=== PATIENT | female | born 1970 | race Two or more races ===

== ENCOUNTER 2019-11-06 06:00 | Day surgery (SDC) | payer OTHER ==
[~2019-11-06 06:00] MED LIST: BUSPIRONE HCL15 MG PO; WELLBUTRIN XL150 M1 PO; XANAX XR1 MG PO
== END 2019-11-06 17:15 | disposition home or self-care (01) ==
LOC: CIR.AMB 06:00
PROVIDERS: ATTEND Surgery
DX: C50.412 Malignant neoplasm of upper-outer quadrant of left female breast (principal); D24.1 Benign neoplasm of right breast; Z20.828 Contact with and (suspected) exposure to other viral communicable diseases; Z90.13 Acquired absence of bilateral breasts and nipples

== ENCOUNTER 2019-11-24 11:14 | Outpatient (CLI) | payer OTHER | END 2019-11-24 11:26 | disposition home or self-care (01) | LOC: SONOGRAMA 11:14 | PROVIDERS: ATTEND Plastic Surgery | DX: N64.89 Other specified disorders of breast (principal) ==

== ENCOUNTER 2020-02-03 08:53 | Outpatient (CLI) | payer OTHER ==
[2020-02-03] MEDS ORDERED: TAMOXIFEN CITRA20 MG PO (12:16)
[2020-02-05] MEDS ORDERED: VITAMIN D PO (11:33)
[2020-02-05] MEDS ORDERED: MULTIVITAMINS1 EAC9 PO (11:33)
== END 2020-02-03 09:00 | disposition home or self-care (01) ==
LOC: LAB 08:53
PROVIDERS: ATTEND Plastic Surgery
DX: C50.912 Malignant neoplasm of unspecified site of left female breast (principal)

== ENCOUNTER 2020-02-12 06:00 | Day surgery (SDC) | payer OTHER ==
[~2020-02-12 06:00] MED LIST changes: +MULTIVITAMINS1 EAC9 PO; +TAMOXIFEN CITRA20 MG PO; +VITAMIN D PO
== END 2020-02-12 14:25 | disposition home or self-care (01) ==
LOC: CIR.AMB 06:00
PROVIDERS: ATTEND Plastic Surgery
DX: C50.812 Malignant neoplasm of overlapping sites of left female breast (principal); Z90.13 Acquired absence of bilateral breasts and nipples; Z20.828 Contact with and (suspected) exposure to other viral communicable diseases
CPT/HCPCS: 19342; C1789; 19366

== ENCOUNTER 2021-11-09 11:45 | Outpatient (CLI) | payer OTHER | END 2021-11-09 11:56 | disposition home or self-care (01) | LOC: SONOGRAMA 11:45 | PROVIDERS: ATTEND Internal Medicine | DX: E04.1 Nontoxic single thyroid nodule (principal); E03.8 Other specified hypothyroidism; N18.2 Chronic kidney disease, stage 2 (mild) ==

== ENCOUNTER → 2022-05-14 | Outpatient (CLI) | payer OTHER | END | disposition home or self-care (01) | LOC: RAD 15:12 | PROVIDERS: ATTEND Physical Medicine & Rehabilitation | DX: M54.59 Other low back pain (principal); M25.561 Pain in right knee; M25.562 Pain in left knee ==